=== PATIENT | female | born 1990 | race Caucasian/White ===

== ENCOUNTER 2018-11-08 15:25 | Outpatient (CLI) | payer BC ==
[~2018-11-08] VITALS: Ht 165.1 cm; Wt 90.9 kg
[~2018-11-08 15:25] MED LIST: LEVO75TA4 PO; TECF240C PO; ZOLO50TA PO
[2018-11-08 15:30] VITALS: BP 143/88
[2018-11-08] MEDS ORDERED: methylPREDNISolone 1000 MG VIAL (J2930) As Ordered ONE (15:46)
[2018-11-08] MEDS ORDERED: methylPREDNISolone 1,000 MG, VIAL MATE ADAPTER 1 EACH in D5W 250 ML IV ONE (16:00)
[2018-11-08] MEDS ORDERED: GILE1CAP PO (16:41)
[2018-11-08] MEDS ORDERED: LEVO88TA3 PO (16:41)
[2018-11-08 17:03] VITALS: BP 134/65
== END 2018-11-08 17:10 | disposition home or self-care (01) ==
LOC: M INFU 15:25
PROVIDERS: ATTEND Internal Medicine
DX: G35 Multiple sclerosis (principal)
CPT/HCPCS: 96365; J2930

== ENCOUNTER 2018-11-09 15:31 | Outpatient (CLI) | payer BC ==
[~2018-11-09] VITALS: Ht 165.1 cm; Wt 90.9 kg
[2018-11-09 13:35] VITALS: BP 141/70
[~2018-11-09 15:31] MED LIST changes: +GILE1CAP PO; +LEVO88TA3 PO
[2018-11-09] MEDS ORDERED: methylPREDNISolone 1000 MG VIAL (J2930) As Ordered ONE ×2 (15:55→15:58)
[2018-11-09] MEDS ORDERED: methylPREDNISolone 1,000 MG, VIAL MATE ADAPTER 1 EACH in D5W 250 ML IV ONE (16:00)
[2018-11-09 17:40] VITALS: BP 122/64
[2018-11-09 18:00] VITALS: BP 121/65
== END 2018-11-09 18:00 | disposition home or self-care (01) ==
LOC: M INFU 15:31
PROVIDERS: ATTEND Internal Medicine
DX: G35 Multiple sclerosis (principal)
CPT/HCPCS: 96365; J2930

== ENCOUNTER 2018-11-10 15:16 | Outpatient (CLI) | payer BC ==
[~2018-11-10] VITALS: Ht 165.1 cm; Wt 90.4 kg
[2018-11-10 15:30] VITALS: BP 132/71
[2018-11-10] MEDS ORDERED: methylPREDNISolone 1000 MG VIAL (J2930) As Ordered ONE (15:37)
[2018-11-10] MEDS ORDERED: methylPREDNISolone 1,000 MG, VIAL MATE ADAPTER 1 EACH in D5W 250 ML IV ONE (15:45)
[2018-11-10 17:15] VITALS: BP 113/53
== END 2018-11-10 17:30 | disposition home or self-care (01) ==
LOC: M INFU 15:16
PROVIDERS: ATTEND Internal Medicine
DX: G35 Multiple sclerosis (principal)
CPT/HCPCS: 96365; 96366; J2930

== ENCOUNTER 2018-11-11 11:58 | Outpatient (CLI) | payer BC ==
[~2018-11-11] VITALS: Ht 165.1 cm; Wt 90.9 kg
[2018-11-11 12:00] VITALS: BP 130/60
[2018-11-11] MEDS ORDERED: methylPREDNISolone 1,000 MG, VIAL MATE ADAPTER 1 EACH in D5W 250 ML IV ONE (12:15)
[2018-11-11 14:25] VITALS: BP 127/70
== END 2018-11-11 14:25 | disposition home or self-care (01) ==
LOC: M INFU 11:58
PROVIDERS: ATTEND Internal Medicine
DX: G35 Multiple sclerosis (principal)
CPT/HCPCS: 96365; 96366; J2930

== ENCOUNTER 2018-11-12 14:33 | Outpatient (CLI) | payer BC ==
[~2018-11-12] VITALS: Ht 162.6 cm; Wt 90.4 kg
[2018-11-12 14:40] VITALS: BP 115/75
[2018-11-12] MEDS ORDERED: methylPREDNISolone 1,000 MG, VIAL MATE ADAPTER 1 EACH in D5W 250 ML IV ONE (15:00)
[2018-11-12 16:00] VITALS: BP 121/64
[2018-11-12 17:07] VITALS: BP 123/60
== END 2018-11-12 17:10 | disposition home or self-care (01) ==
LOC: M INFU 14:33
PROVIDERS: ATTEND Internal Medicine
DX: G35 Multiple sclerosis (principal)
CPT/HCPCS: 96365; 96366; J2930

== ENCOUNTER → 2019-05-14 | Outpatient (CLI) | payer BC ==
--- NOTE | 2019-05-14 13:50 | REP ---
Pain after trauma. PRIORS: None. There is a fracture involving the base of the proximal phalanx of the 5th digit. Electronically Signed by Gunner Murcia DO 05/14/2019 03:18 P
== END ==
LOC: M LRY 12:34
PROVIDERS: ATTEND Nurse Practitioner Family
DX: S62.647A Nondisplaced fracture of proximal phalanx of left little finger, initial encounter for closed fracture (principal); X58.XXXA Exposure to other specified factors, initial encounter; Y92.89 Other specified places as the place of occurrence of the external cause

== ENCOUNTER → 2019-08-10 | Outpatient (REF) | payer BC | LOC: M SFHCLERA 11:27 | PROVIDERS: ATTEND Nurse Practitioner Family | DX: J00 Acute nasopharyngitis [common cold] (principal) ==

== ENCOUNTER → 2019-09-02 | Outpatient (CLI) | payer BC ==
[~2019-09-02] VITALS: Ht 162.6 cm; Wt 90.4 kg
[~2019-09-02] MED LIST changes: +NATALIZUMAB OVER 1 HOUR IV ONE; +TYSA1INJ IV
[2019-09-02 15:02] VITALS: BP 123/72
[2019-09-02 16:20] VITALS: BP 118/69
[2019-09-02 17:15] VITALS: BP 129/84
== END ==
LOC: M INFU 14:29
PROVIDERS: ATTEND Nurse Practitioner
DX: G35 Multiple sclerosis (principal)
CPT/HCPCS: 96365; J2323

== ENCOUNTER 2019-09-30 15:24 | Outpatient (CLI) | payer BC ==
[~2019-09-30] VITALS: Ht 162.6 cm; Wt 90.4 kg
[~2019-09-30 15:24] MED LIST changes: -NATALIZUMAB OVER 1 HOUR IV ONE
[2019-09-30 15:30] VITALS: BP 124/63
[2019-09-30] MEDS ORDERED: NATALIZUMAB OVER 1 HOUR IV ONE ×2 (15:45)
[2019-09-30 17:24] VITALS: BP 118/63
[2019-09-30 18:11] VITALS: BP 130/73
== END 2019-09-30 18:15 | disposition home or self-care (01) ==
LOC: M INFU 15:24
PROVIDERS: ATTEND Nurse Practitioner
DX: G35 Multiple sclerosis (principal)
CPT/HCPCS: 96365; J2323

== ENCOUNTER 2019-11-04 15:21 | Outpatient (CLI) | payer BC ==
[~2019-11-04] VITALS: Ht 10.2 cm; Wt 90.4 kg
[2019-11-04] MEDS ORDERED: NATALIZUMAB OVER 1 HOUR IV ONE ×2 (16:00)
[2019-11-04 16:01] VITALS: BP 123/71
[2019-11-04 17:00] VITALS: BP 128/74
[2019-11-04 18:00] VITALS: BP 121/68
== END 2019-11-04 18:04 | disposition home or self-care (01) ==
LOC: M INFU 15:21
PROVIDERS: ATTEND Nurse Practitioner
DX: G35 Multiple sclerosis (principal)
CPT/HCPCS: 96365; J2323

== ENCOUNTER 2019-12-22 08:06 | Outpatient (CLI) | payer BC ==
[~2019-12-22] VITALS: Ht 162.6 cm; Wt 90.4 kg
[2019-12-22] MEDS ORDERED: NATALIZUMAB OVER 1 HOUR IV ONE ×2 (08:30)
== END 2019-12-22 10:33 | disposition home or self-care (01) ==
LOC: M INFU 08:06
PROVIDERS: ATTEND Nurse Practitioner
DX: G35 Multiple sclerosis (principal)
CPT/HCPCS: 96365; J2323

== ENCOUNTER 2020-01-20 15:23 | Outpatient (CLI) | payer BC ==
[~2020-01-20] VITALS: Ht 162.6 cm; Wt 90.4 kg
[2020-01-20 15:25] VITALS: BP 134/88
[2020-01-20 16:00] VITALS: BP 117/70
[2020-01-20] MEDS ORDERED: NATALIZUMAB OVER 1 HOUR IV ONE ×2 (16:15)
[2020-01-20 16:25] VITALS: BP 129/76
[2020-01-20 17:05] VITALS: BP 117/70
[2020-01-20 18:12] VITALS: BP 129/74
== END 2020-01-20 18:10 | disposition home or self-care (01) ==
LOC: M INFU 15:23
PROVIDERS: ATTEND Nurse Practitioner
DX: G35 Multiple sclerosis (principal)
CPT/HCPCS: 96365; J2323

== ENCOUNTER 2020-02-17 15:29 | Outpatient (CLI) | payer BC ==
[~2020-02-17] VITALS: Ht 162.6 cm; Wt 90.4 kg
[2020-02-17 15:49] VITALS: BP 140/62
[2020-02-17] MEDS ORDERED: NATALIZUMAB OVER 1 HOUR IV ONE ×2 (16:00)
[2020-02-17 17:45] VITALS: BP 139/75
== END 2020-02-17 17:47 | disposition home or self-care (01) ==
LOC: M INFU 15:29
PROVIDERS: ATTEND Nurse Practitioner
DX: G35 Multiple sclerosis (principal)

== ENCOUNTER 2020-03-16 15:32 | Outpatient (CLI) | payer BC ==
[~2020-03-16] VITALS: Ht 162.6 cm; Wt 90.4 kg
[2020-03-16 15:45] VITALS: BP 123/75
[2020-03-16 16:00] VITALS: BP 123/75
[2020-03-16] MEDS ORDERED: NATALIZUMAB OVER 1 HOUR IV ONE ×2 (16:00)
[2020-03-16 17:07] VITALS: BP 132/68
[2020-03-16 18:11] VITALS: BP 120/68
== END 2020-03-16 18:15 ==
LOC: M INFU 15:32
PROVIDERS: ATTEND Nurse Practitioner
DX: G35 Multiple sclerosis (principal)
CPT/HCPCS: 96365; J2323

== ENCOUNTER 2020-04-13 15:30 | Outpatient (CLI) | payer BC ==
[2020-04-13] MEDS ORDERED: NATALIZUMAB ONE (15:31)
== END 2020-04-13 18:30 | disposition home or self-care (01) ==
LOC: M INFU 15:30
PROVIDERS: ATTEND Nurse Practitioner
DX: G35 Multiple sclerosis (principal)

== ENCOUNTER 2020-05-18 15:11 | Outpatient (CLI) | payer BC ==
[~2020-05-18] VITALS: Ht 162.6 cm; Wt 90.4 kg
[2020-05-18 15:20] VITALS: BP 138/85
[2020-05-18] MEDS ORDERED: NATALIZUMAB OVER 1 HOUR IV ONE ×2 (15:30)
[2020-05-18 15:39] VITALS: BP 138/85
[2020-05-18 17:15] VITALS: BP 141/81
[2020-05-18 18:25] VITALS: BP 139/82
== END 2020-05-18 18:25 | disposition home or self-care (01) ==
LOC: M INFU 15:11
PROVIDERS: ATTEND Nurse Practitioner
DX: G35 Multiple sclerosis (principal)
CPT/HCPCS: 96365; 96366; J2323

== ENCOUNTER 2020-06-15 15:14 | Outpatient (CLI) | payer BC ==
[~2020-06-15] VITALS: Ht 162.6 cm; Wt 89.8 kg
[~2020-06-15 15:14] MED LIST changes: +ALBUTEROL SULFATE 2.5 MG/0.5 ML INH NEB SOLN INH PRN; +EPINEPHrine INJ 1 MG/ML 1ML AMP IM PRN; +NS 1,000 ML IV SCH; +diphenhydrAMINE 50MG/ML VIAL (J1200) IV PRN; +methylPREDNISolone 125MG 2ML VIAL IV PRN
[2020-06-15 15:15] VITALS: BP 122/79
[2020-06-15] MEDS ORDERED: NATALIZUMAB OVER 1 HOUR IV ONE ×2 (15:30)
[2020-06-15 16:50] VITALS: BP 118/78
[2020-06-15 18:00] VITALS: BP 127/77
== END 2020-06-15 18:00 | disposition home or self-care (01) ==
LOC: M INFU 15:14
PROVIDERS: ATTEND Nurse Practitioner
DX: G35 Multiple sclerosis (principal)
CPT/HCPCS: 96365; J2323

== ENCOUNTER 2020-07-13 15:14 | Outpatient (CLI) | payer BC ==
[~2020-07-13] VITALS: Ht 162.6 cm; Wt 89.8 kg
[~2020-07-13 15:14] MED LIST changes: -NS 1,000 ML IV SCH
[2020-07-13 15:15] VITALS: BP 127/75
[2020-07-13] MEDS ORDERED: NS 1,000 ML IV SCH (15:30)
[2020-07-13] MEDS ORDERED: NATALIZUMAB OVER 1 HOUR IV ONE ×2 (15:30)
[2020-07-13 15:52] VITALS: BP 127/75
[2020-07-13 17:00] VITALS: BP 132/71
[2020-07-13 17:29] VITALS: BP 136/86
== END 2020-07-13 17:30 | disposition home or self-care (01) ==
LOC: M INFU 15:14
PROVIDERS: ATTEND Nurse Practitioner
DX: G35 Multiple sclerosis (principal); Z88.1 Allergy status to other antibiotic agents
CPT/HCPCS: 96365; 96366; J2323

== ENCOUNTER 2020-08-10 15:24 | Outpatient (CLI) | payer BC ==
[~2020-08-10] VITALS: Ht 162.6 cm; Wt 89.8 kg
[2020-08-10 15:30] VITALS: BP 141/85
[2020-08-10] MEDS ORDERED: NS 1,000 ML IV SCH (15:30)
[2020-08-10] MEDS ORDERED: NATALIZUMAB OVER 1 HOUR IV ONE ×2 (15:30)
[2020-08-10 17:10] VITALS: BP 122/61
[2020-08-10 18:05] VITALS: BP 141/73
== END 2020-08-10 18:05 | disposition home or self-care (01) ==
LOC: M INFU 15:24
PROVIDERS: ATTEND Nurse Practitioner
DX: G35 Multiple sclerosis (principal)
CPT/HCPCS: 96365; J2323

== ENCOUNTER 2020-09-25 12:27 | Outpatient (CLI) | payer BC ==
[~2020-09-25] VITALS: Ht 162.6 cm; Wt 89.8 kg
[~2020-09-25 12:27] MED LIST changes: +NATALIZUMAB OVER 1 HOUR IV ONE; +NS 1,000 ML IV SCH
[2020-09-25] MEDS ORDERED: NS 1,000 ML IV SCH (12:30)
[2020-09-25] MEDS ORDERED: EPINEPHrine INJ 1 MG/ML 1ML AMP IM PRN (12:30)
[2020-09-25] MEDS ORDERED: NATALIZUMAB OVER 1 HOUR IV ONE ×2 (12:30)
[2020-09-25] MEDS ORDERED: ALBUTEROL SULFATE 2.5 MG/0.5 ML INH NEB SOLN INH PRN (12:30)
[2020-09-25] MEDS ORDERED: diphenhydrAMINE 50MG/ML VIAL (J1200) IV PRN (12:30)
[2020-09-25] MEDS ORDERED: methylPREDNISolone 125MG 2ML VIAL IV PRN (12:30)
[2020-09-25 12:53] VITALS: BP 137/86
[2020-09-25 12:55] VITALS: BP 137/86
[2020-09-25 14:00] VITALS: BP 120/69
[2020-09-25 15:00] VITALS: BP 125/71
== END 2020-09-25 15:10 | disposition home or self-care (01) ==
LOC: M INFU 12:27
PROVIDERS: ATTEND Nurse Practitioner
DX: G35 Multiple sclerosis (principal)
CPT/HCPCS: 96365; J2323

== ENCOUNTER 2020-10-26 12:25 | Outpatient (CLI) | payer BC ==
[~2020-10-26] VITALS: Ht 163.8 cm; Wt 89.8 kg
[~2020-10-26 12:25] MED LIST changes: -NATALIZUMAB OVER 1 HOUR IV ONE; -NS 1,000 ML IV SCH
[2020-10-26] MEDS ORDERED: NS 1,000 ML IV SCH (12:30)
[2020-10-26] MEDS ORDERED: NATALIZUMAB OVER 1 HOUR IV ONE ×2 (12:30)
[2020-10-26 12:41] VITALS: BP 136/79
[2020-10-26 15:00] VITALS: BP 125/75
== END 2020-10-26 15:00 | disposition home or self-care (01) ==
LOC: M INFU 12:25
PROVIDERS: ATTEND Nurse Practitioner
DX: G35 Multiple sclerosis (principal)
CPT/HCPCS: 96365; J2323

== ENCOUNTER 2020-11-23 12:19 | Outpatient (CLI) | payer BC ==
[~2020-11-23] VITALS: Ht 162.6 cm; Wt 90.9 kg
[2020-11-23 12:30] VITALS: BP 138/87
[2020-11-23] MEDS ORDERED: NATALIZUMAB OVER 1 HOUR IV ONE ×2 (12:30)
[2020-11-23 13:56] VITALS: BP 121/70
[2020-11-23 14:50] VITALS: BP 132/92
== END 2020-11-23 14:50 | disposition home or self-care (01) ==
LOC: M INFU 12:19
PROVIDERS: ATTEND Nurse Practitioner
DX: G35 Multiple sclerosis (principal)
CPT/HCPCS: 96365; J2323

== ENCOUNTER → 2020-11-23 | Outpatient (CLI) | payer BC ==
[~2020-11-23] MED LIST changes: -ALBUTEROL SULFATE 2.5 MG/0.5 ML INH NEB SOLN INH PRN; -EPINEPHrine INJ 1 MG/ML 1ML AMP IM PRN; -diphenhydrAMINE 50MG/ML VIAL (J1200) IV PRN; -methylPREDNISolone 125MG 2ML VIAL IV PRN
[2020-11-23 16:04] LABS: FREE T4 0.87 NG/DL (0.76-1.46); THYROID STIMULATING HORMONE 1.71 uIU/ML (0.358-3.740)
== END ==
LOC: M LAB 15:05
PROVIDERS: ATTEND Nurse Practitioner Family
DX: E03.9 Hypothyroidism, unspecified (principal)

== ENCOUNTER 2020-12-21 12:18 | Outpatient (CLI) | payer BC ==
[~2020-12-21] VITALS: Ht 162.6 cm; Wt 90.9 kg
[2020-12-21] MEDS ORDERED: NATALIZUMAB OVER 1 HOUR IV ONE ×2 (12:30)
[2020-12-21 12:42] VITALS: BP 121/80
[2020-12-21 13:54] VITALS: BP 117/67
== END 2020-12-21 14:50 | disposition home or self-care (01) ==
LOC: M INFU 12:18
PROVIDERS: ATTEND Nurse Practitioner
DX: G35 Multiple sclerosis (principal)
CPT/HCPCS: 96365; J2323

== ENCOUNTER 2021-01-18 12:26 | Outpatient (CLI) | payer BC ==
[~2021-01-18] VITALS: Ht 162.6 cm; Wt 90.9 kg
[2021-01-18] MEDS ORDERED: NATALIZUMAB OVER 1 HOUR IV ONE ×2 (12:30)
[2021-01-18 13:00] VITALS: BP 122/68
[2021-01-18 14:15] VITALS: BP 131/62
== END 2021-01-18 14:15 | disposition home or self-care (01) ==
LOC: M INFU 12:26
PROVIDERS: ATTEND Nurse Practitioner
DX: G35 Multiple sclerosis (principal)
CPT/HCPCS: 96365; J2323

== ENCOUNTER 2021-02-15 12:39 | Outpatient (CLI) | payer BC ==
[~2021-02-15 12:39] MED LIST changes: +NATALIZUMAB OVER 1 HOUR IV ONE
[2021-02-15 12:45] VITALS: BP 142/84
== END 2021-02-15 14:10 | disposition home or self-care (01) ==
LOC: M INFU 12:39
PROVIDERS: ATTEND Nurse Practitioner
DX: G35 Multiple sclerosis (principal)
CPT/HCPCS: 96365; J2323

== ENCOUNTER 2021-03-15 12:55 | Outpatient (CLI) | payer BC, OTHER, SELFPAY ==
[~2021-03-15] VITALS: Ht 162.6 cm; Wt 90.9 kg
[2021-03-15 13:18] VITALS: BP 148/75
[2021-03-15 13:30] VITALS: BP_SYST 132; BP_SYST 148; BP_DIAS 75; BP_DIAS 78
[2021-03-15 14:55] VITALS: BP 135/85
== END 2021-03-15 14:55 | disposition home or self-care (01) ==
LOC: M INFU 12:55
PROVIDERS: ATTEND Nurse Practitioner
DX: G35 Multiple sclerosis (principal)
CPT/HCPCS: 96365; J2323

== ENCOUNTER 2021-04-12 12:33 | Outpatient (CLI) | payer OTHER ==
[~2021-04-12] VITALS: Ht 162.6 cm; Wt 90.9 kg
[2021-04-12 12:30] VITALS: BP 129/78
[2021-04-12 14:30] VITALS: BP 138/85
== END 2021-04-12 14:30 | disposition home or self-care (01) ==
LOC: M INFU 12:33
PROVIDERS: ATTEND Nurse Practitioner
DX: G35 Multiple sclerosis (principal)
CPT/HCPCS: 96365; J2323

== ENCOUNTER 2021-05-10 12:37 | Outpatient (CLI) | payer OTHER ==
[2021-05-10 12:45] VITALS: BP 144/78
[2021-05-10] MEDS ORDERED: MODA200T15 PO (13:25)
[2021-05-10] MEDS ORDERED: CLAR10CA3 PO (13:25)
[2021-05-10] MEDS ORDERED: VITACAP31 PO (13:27)
== END 2021-05-10 14:45 | disposition home or self-care (01) ==
LOC: M INFU 12:37
PROVIDERS: ATTEND Nurse Practitioner
DX: G35 Multiple sclerosis (principal)
CPT/HCPCS: 96374; J2323

== ENCOUNTER 2021-06-07 12:14 | Outpatient (CLI) | payer BC, OTHER ==
[~2021-06-07] VITALS: Ht 162.6 cm; Wt 93.2 kg
[~2021-06-07 12:14] MED LIST changes: +CLAR10CA3 PO; +MODA200T15 PO; -NATALIZUMAB OVER 1 HOUR IV ONE; +VITACAP31 PO
[2021-06-07 12:19] VITALS: BP 125/77
[2021-06-07] MEDS ORDERED: NATALIZUMAB OVER 1 HOUR IV ONE ×2 (12:30)
[2021-06-07] MEDS ORDERED: ABIL1TAB11 PO (12:31)
[2021-06-07 14:24] VITALS: BP 135/69
== END 2021-06-07 14:35 | disposition home or self-care (01) ==
LOC: M INFU 12:14
PROVIDERS: ATTEND Physician Assistant
DX: G35 Multiple sclerosis (principal)
CPT/HCPCS: 96365; J2323

== ENCOUNTER 2021-07-05 13:02 | Outpatient (CLI) | payer OTHER ==
[~2021-07-05] VITALS: Ht 162.6 cm; Wt 90.9 kg
[2021-07-05 13:00] VITALS: BP 125/83
[~2021-07-05 13:02] MED LIST changes: +ABIL1TAB11 PO; +NATALIZUMAB OVER 1 HOUR IV ONE
[2021-07-05] MEDS ORDERED: WELL100T2 PO (13:56)
[2021-07-05 15:15] VITALS: BP 136/84
== END 2021-07-05 15:15 | disposition home or self-care (01) ==
LOC: M INFU 13:02
PROVIDERS: ATTEND Physician Assistant
DX: G35 Multiple sclerosis (principal)
CPT/HCPCS: 96365; J2323

== ENCOUNTER 2021-08-16 12:38 | Outpatient (CLI) | payer BC, OTHER ==
[~2021-08-16] VITALS: Ht 162.6 cm; Wt 95.5 kg
[~2021-08-16 12:38] MED LIST changes: +WELL100T2 PO
[2021-08-16 12:42] VITALS: BP 130/77
[2021-08-16 13:27] VITALS: BP 130/77
[2021-08-16 14:20] VITALS: BP 128/83
== END 2021-08-16 14:30 | disposition home or self-care (01) ==
LOC: M INFU 12:38
PROVIDERS: ATTEND Physician Assistant
DX: G35 Multiple sclerosis (principal)
CPT/HCPCS: 96365; J2323

== ENCOUNTER 2021-09-27 12:23 | Outpatient (CLI) | payer OTHER ==
[~2021-09-27] VITALS: Ht 162.6 cm; Wt 95.5 kg
[~2021-09-27 12:23] MED LIST changes: -NATALIZUMAB OVER 1 HOUR IV ONE
[2021-09-27] MEDS ORDERED: NATALIZUMAB OVER 1 HOUR IV ONE ×2 (12:30)
[2021-09-27 12:45] VITALS: BP 128/85
[2021-09-27 14:43] VITALS: BP 116/66
== END 2021-09-27 14:45 | disposition home or self-care (01) ==
LOC: M INFU 12:23
PROVIDERS: ATTEND Physician Assistant
DX: G35 Multiple sclerosis (principal)
CPT/HCPCS: 96365; J2323

== ENCOUNTER 2021-11-08 12:26 | Outpatient (CLI) | payer OTHER ==
[~2021-11-08] VITALS: Ht 162.6 cm; Wt 95.5 kg
[2021-11-08] MEDS ORDERED: NATALIZUMAB OVER 1 HOUR IV ONE ×2 (12:30)
[2021-11-08 12:45] VITALS: BP 143/89
[2021-11-08 14:15] VITALS: BP 160/80
== END 2021-11-08 14:15 | disposition home or self-care (01) ==
LOC: M INFU 12:26
PROVIDERS: ATTEND Physician Assistant
DX: G35 Multiple sclerosis (principal)
CPT/HCPCS: 96365; J2323

== ENCOUNTER 2021-12-20 12:29 | Outpatient (CLI) | payer OTHER ==
[~2021-12-20] VITALS: Ht 162.6 cm; Wt 95.5 kg
[2021-12-20] MEDS ORDERED: NATALIZUMAB OVER 1 HOUR IV ONE ×2 (12:30)
[2021-12-20 12:57] VITALS: BP 124/83
[2021-12-20 14:10] VITALS: BP 130/71
== END 2021-12-20 14:10 | disposition home or self-care (01) ==
LOC: M INFU 12:29
PROVIDERS: ATTEND Physician Assistant
DX: G35 Multiple sclerosis (principal)
CPT/HCPCS: 96365; J2323

== ENCOUNTER → 2022-01-15 | Outpatient (CLI) | payer OTHER ==
[2022-01-15 11:10] LABS: BASO # 0.1 10^3/uL (0.0-0.2); BASO % 0.6 % (0.0-1.0); EOS # 0.1 10^3/uL (0.0-0.5); EOS % 1.3 % (0.0-3.0); LYMPH # 3.9 10^3/uL (1.5-5.0); MEAN CORPUSCULAR HEMOGLOBIN 29.2 pg (27.0-33.0); MEAN CORPUSCULAR HGB CONC 33.3 g/dl (32.0-36.5); MEAN CORPUSCULAR VOLUME 87.5 fl (80.0-96.0); MONO # 0.7 10^3/uL (0.0-0.8); MONO % 6.9 % (2.0-8.0); NEUTROPHILS # 5.2 10^3/uL (1.5-8.5); NEUTROPHILS % 51.5 % (36.0-66.0); PLATELET COUNT, AUTOMATED 169 10^3/uL (150-450); WHITE BLOOD COUNT 10.1 10^3/uL (4.0-10.0)
[2022-01-15 11:38] LABS: ALBUMIN 4.1 GM/DL (3.2-5.2); ALT/SGPT 32 U/L (12-78); BILIRUBIN,TOTAL 0.4 MG/DL (0.2-1.0); BLOOD UREA NITROGEN 12 MG/DL (7-18); CALCIUM LEVEL 9.5 MG/DL (8.5-10.1); CARBON DIOXIDE LEVEL 28 MEQ/L (21-32); CHLORIDE LEVEL 107 MEQ/L (98-107); CREATININE FOR GFR 0.81 MG/DL (0.55-1.30); GLOMERULAR FILTRATION RATE > 60.0 (>60); GLUCOSE, FASTING 96 MG/DL (70-100); POTASSIUM SERUM 4.2 MEQ/L (3.5-5.1); SODIUM LEVEL 140 MEQ/L (136-145); TOTAL PROTEIN 6.9 GM/DL (6.4-8.2)
[2022-01-15 11:45] LABS: TOTAL 25(OH) VITAMIN D 44.5 NG/ML (30.0-100.0)
== END ==
LOC: M LAB 10:16
PROVIDERS: ATTEND Physician Assistant
DX: G35 Multiple sclerosis (principal)

== ENCOUNTER 2022-01-31 12:43 | Outpatient (CLI) | payer OTHER ==
[~2022-01-31] VITALS: Ht 162.6 cm; Wt 95.5 kg
[~2022-01-31 12:43] MED LIST changes: +NATALIZUMAB OVER 1 HOUR IV ONE
[2022-01-31 12:50] VITALS: BP 134/79
[2022-01-31 14:29] VITALS: BP 148/82
== END 2022-01-31 14:30 | disposition home or self-care (01) ==
LOC: M INFU 12:43
PROVIDERS: ATTEND Physician Assistant
DX: G35 Multiple sclerosis (principal)
CPT/HCPCS: 96365; J2323

== ENCOUNTER 2022-03-14 12:30 | Outpatient (CLI) | payer OTHER ==
[~2022-03-14] VITALS: Ht 162.6 cm; Wt 95.5 kg
[2022-03-14 12:45] VITALS: BP 138/75
[2022-03-14 14:07] VITALS: BP 150/65
== END 2022-03-14 14:10 | disposition home or self-care (01) ==
LOC: M INFU 12:30
PROVIDERS: ATTEND Physician Assistant
DX: G35 Multiple sclerosis (principal)
CPT/HCPCS: 96365; J2323

== ENCOUNTER 2022-04-25 12:40 | Outpatient (CLI) | payer OTHER ==
[2022-04-25 12:46] VITALS: BP 138/81
[2022-04-25 14:16] VITALS: BP 138/90
== END 2022-04-25 14:10 | disposition home or self-care (01) ==
LOC: M INFU 12:40
PROVIDERS: ATTEND Physician Assistant
DX: G35 Multiple sclerosis (principal)
CPT/HCPCS: 96365; J2323

== ENCOUNTER 2022-06-06 12:30 | Outpatient (CLI) | payer OTHER ==
[2022-06-06 13:54] VITALS: BP 144/95
== END 2022-06-06 13:55 | disposition home or self-care (01) ==
LOC: M INFU 12:30
PROVIDERS: ATTEND Physician Assistant
DX: G35 Multiple sclerosis (principal)
CPT/HCPCS: 96365; J2323

== ENCOUNTER 2022-08-01 09:25 | Outpatient (CLI) | payer OTHER ==
[~2022-08-01] VITALS: Ht 165.1 cm; Wt 95.4 kg
[2022-08-01] MEDS ORDERED: NATALIZUMAB OVER 1 HOUR IV ONE ×2 (09:30)
[2022-08-01 09:42] VITALS: BP 135/78
[2022-08-01 10:55] VITALS: BP 134/73
== END 2022-08-01 10:55 | disposition home or self-care (01) ==
LOC: M INFU 09:25
PROVIDERS: ATTEND Nurse Practitioner Family
DX: G35 Multiple sclerosis (principal)
CPT/HCPCS: 96365; J2323

== ENCOUNTER 2022-09-12 12:30 | Outpatient (CLI) | payer OTHER ==
[~2022-09-12] VITALS: Ht 162.6 cm; Wt 95.5 kg
[2022-09-12 12:30] VITALS: BP 124/65
[2022-09-12 14:30] VITALS: BP 128/76
== END 2022-09-12 14:30 | disposition home or self-care (01) ==
LOC: M INFU 12:30
PROVIDERS: ATTEND Nurse Practitioner Family
DX: G35 Multiple sclerosis (principal)
CPT/HCPCS: 96365; J2323

== ENCOUNTER 2022-10-24 12:45 | Outpatient (CLI) | payer OTHER ==
[~2022-10-24] VITALS: Ht 162.6 cm; Wt 94.5 kg
[2022-10-24 12:45] VITALS: BP 126/67
[2022-10-24 14:45] VITALS: BP 140/82
== END 2022-10-24 14:45 | disposition home or self-care (01) ==
LOC: M INFU 12:45
PROVIDERS: ATTEND Nurse Practitioner Family
DX: G35 Multiple sclerosis (principal)
CPT/HCPCS: 96365; J2323

== ENCOUNTER 2022-12-05 12:38 | Outpatient (CLI) | payer OTHER ==
[2022-12-05 12:45] VITALS: BP 104/73
[2022-12-05 14:28] VITALS: BP 126/66
== END 2022-12-05 14:30 | disposition home or self-care (01) ==
LOC: M INFU 12:38
PROVIDERS: ATTEND Nurse Practitioner Family
DX: G35 Multiple sclerosis (principal)
CPT/HCPCS: 96365; J2323

== ENCOUNTER 2023-01-16 12:30 | Outpatient (CLI) | payer MEDICARE ==
[~2023-01-16] VITALS: Ht 162.6 cm; Wt 96.6 kg
[2023-01-16 12:30] VITALS: BP 148/64
[~2023-01-16 12:30] MED LIST changes: +ALBUTEROL SULFATE 2.5MG/0.5ML INH NEB SOLN INH PRN; +EPINEPHrine INJ 1 MG/ML 1ML AMP IM PRN; +NS 1,000 ML IV SCH; +diphenhydrAMINE 50MG/ML VIAL IV PRN; +methylPREDNISolone 125MG 2ML VIAL IV PRN
[2023-01-16 14:10] VITALS: BP 120/71
== END 2023-01-16 14:10 | disposition home or self-care (01) ==
LOC: M INFU 12:30
PROVIDERS: ATTEND Nurse Practitioner Family
DX: G35 Multiple sclerosis (principal); Z88.0 Allergy status to penicillin
CPT/HCPCS: 96365; J2323

== ENCOUNTER 2023-03-09 14:30 | Outpatient (CLI) | payer MEDICARE, OTHER ==
[~2023-03-09] VITALS: Ht 162.6 cm; Wt 96.1 kg
[2023-03-09 14:30] VITALS: BP 127/68; O2SAT 98
[2023-03-09 17:00] VITALS: BP 132/70; O2SAT 99
== END 2023-03-09 17:00 ==
LOC: M INFU 14:30
PROVIDERS: ATTEND Physician Assistant
DX: G35 Multiple sclerosis (principal); Z88.0 Allergy status to penicillin
CPT/HCPCS: 96365; J2323

== ENCOUNTER 2023-04-20 11:00 | Outpatient (CLI) | payer MEDICARE, OTHER ==
[~2023-04-20] VITALS: Ht 162.6 cm; Wt 95.5 kg
[2023-04-20 11:22] VITALS: BP 131/80; O2SAT 97
[2023-04-20 13:15] VITALS: BP 134/83; O2SAT 98
== END 2023-04-20 13:20 | disposition home or self-care (01) ==
LOC: M INFU 11:00
PROVIDERS: ATTEND Physician Assistant
DX: G35 Multiple sclerosis (principal); Z88.0 Allergy status to penicillin
CPT/HCPCS: 96365; J2323

== ENCOUNTER 2023-06-10 10:30 | Outpatient (CLI) | payer MEDICARE ==
[~2023-06-10] VITALS: Ht 165.1 cm; Wt 96.3 kg
[2023-06-10 10:53] VITALS: BP 134/84; TEMP 98.1; O2SAT 98
[2023-06-10 12:15] VITALS: BP 131/75; O2SAT 100
== END 2023-06-10 12:20 ==
LOC: M INFU 10:30
PROVIDERS: ATTEND Physician Assistant
DX: G35 Multiple sclerosis (principal); Z88.0 Allergy status to penicillin
CPT/HCPCS: 96365; J2323

== ENCOUNTER 2023-07-22 10:36 | Outpatient (CLI) | payer MEDICARE, OTHER ==
[~2023-07-22] VITALS: Ht 162.6 cm; Wt 99.0 kg
[2023-07-22 10:40] VITALS: BP 129/69; O2SAT 97
[2023-07-22 11:00] VITALS: BP 129/69; O2SAT 97
[2023-07-22 12:50] VITALS: BP 142/78; O2SAT 98
== END 2023-07-22 12:50 ==
LOC: M INFU 10:36
PROVIDERS: ATTEND Physician Assistant
DX: G35 Multiple sclerosis (principal); Z88.0 Allergy status to penicillin
CPT/HCPCS: 96365; J2323

== ENCOUNTER 2023-09-02 10:30 | Outpatient (CLI) | payer MEDICARE ==
[~2023-09-02] VITALS: Ht 162.6 cm; Wt 100.0 kg
[2023-09-02 10:50] VITALS: BP 137/86; O2SAT 96
[2023-09-02 12:30] VITALS: BP 132/90; O2SAT 96
== END 2023-09-02 12:30 | disposition home or self-care (01) ==
LOC: M INFU 10:30
PROVIDERS: ATTEND Physician Assistant
DX: G35 Multiple sclerosis (principal); Z88.1 Allergy status to other antibiotic agents
CPT/HCPCS: 96365; J2323

== ENCOUNTER 2023-10-14 10:35 | Outpatient (CLI) | payer MEDICARE, OTHER ==
[~2023-10-14 10:35] MED LIST changes: -NATALIZUMAB OVER 1 HOUR IV ONE
[2023-10-14 10:52] VITALS: BP 125/59; O2SAT 96
[2023-10-14] MEDS: NATALIZUMAB OVER 1 HOUR IV ONE (11:21)
[2023-10-14 12:31] VITALS: BP 120/73; O2SAT 96
== END 2023-10-14 12:30 ==
LOC: M INFU 10:35
PROVIDERS: ATTEND Physician Assistant
DX: G35 Multiple sclerosis (principal); Z88.0 Allergy status to penicillin
CPT/HCPCS: 96365; J2323

== ENCOUNTER 2023-11-25 10:30 | Outpatient (CLI) | payer MEDICARE, OTHER ==
[~2023-11-25] VITALS: Ht 162.6 cm; Wt 100.0 kg
[2023-11-25 11:04] VITALS: BP 143/75; O2SAT 95
[2023-11-25] MEDS: NATALIZUMAB OVER 1 HOUR IV ONE (11:10)
[2023-11-25 12:12] VITALS: BP 132/79; O2SAT 98
== END 2023-11-25 12:20 ==
LOC: M INFU 10:30
PROVIDERS: ATTEND Physician Assistant
DX: G35 Multiple sclerosis (principal); Z88.0 Allergy status to penicillin
CPT/HCPCS: 96365; J2323

== ENCOUNTER 2024-01-14 10:17 | Outpatient (CLI) | payer MEDICARE, OTHER ==
[~2024-01-14] VITALS: Ht 163.8 cm; Wt 100.0 kg
[~2024-01-14 10:17] MED LIST changes: +NATALIZUMAB OVER 1 HOUR IV ONE
[2024-01-14 10:20] VITALS: BP 133/84; O2SAT 96
[2024-01-14 10:25] VITALS: BP 143/88; O2SAT 98
[2024-01-14] MEDS: NATALIZUMAB OVER 1 HOUR IV ONE (10:45)
[2024-01-14 11:45] VITALS: BP 143/88; O2SAT 98
== END 2024-01-14 11:45 | disposition home or self-care (01) ==
LOC: M INFU 10:17
PROVIDERS: ATTEND Physician Assistant
DX: G35 Multiple sclerosis (principal); F34.1 Dysthymic disorder; F40.10 Social phobia, unspecified; F41.1 Generalized anxiety disorder; Z88.0 Allergy status to penicillin
CPT/HCPCS: 90834; 96365; J2323

== ENCOUNTER → 2024-02-09 | Outpatient (CLI) | payer MEDICARE, MEDICAID ==
[~2024-02-09] MED LIST changes: -ALBUTEROL SULFATE 2.5MG/0.5ML INH NEB SOLN INH PRN; -EPINEPHrine INJ 1 MG/ML 1ML AMP IM PRN; -NATALIZUMAB OVER 1 HOUR IV ONE; -NS 1,000 ML IV SCH; -diphenhydrAMINE 50MG/ML VIAL IV PRN; -methylPREDNISolone 125MG 2ML VIAL IV PRN
[2024-02-09 10:42] LABS: BASO # 0.1 10^3/uL (0.0-0.2); BASO % 0.9 % (0.0-1.0); EOS # 0.2 10^3/uL (0.0-0.5); EOS % 1.5 % (0.0-3.0); HEMATOCRIT 45.5 % (36.0-47.0); HEMOGLOBIN 15.1 g/dl (12.0-15.5); LYMPH # 4.8 10^3/uL (1.5-5.0); LYMPH % 44.1 % (24.0-44.0); MEAN CORPUSCULAR HEMOGLOBIN 28.5 pg (27.0-33.0); MEAN CORPUSCULAR HGB CONC 33.2 g/dl (32.0-36.5); MONO # 0.8 10^3/uL (0.0-0.8); NEUTROPHILS % 45.9 % (36.0-66.0); PLATELET COUNT, AUTOMATED 165 10^3/uL (150-450); RED BLOOD COUNT 5.29 10^6/uL (4.00-5.40); WHITE BLOOD COUNT 10.8 10^3/uL (4.0-10.0)
[2024-02-09 11:14] LABS: THYROID STIMULATING HORMONE 12.676 uIU/ML (0.55-4.78); TOTAL 25(OH) VITAMIN D 38.2 NG/ML (20.0-100.0)
[2024-02-09 11:17] LABS: ALBUMIN 4.3 G/DL (3.2-5.2); ALKALINE PHOSPHATASE 57 U/L (46-116); ALT/SGPT 36 U/L (7.0-40); AST/SGOT 13 U/L (<34); BILIRUBIN,TOTAL 0.5 MG/DL (0.3-1.2); BLOOD UREA NITROGEN 12 MG/DL (9-23); CALCIUM LEVEL 10.3 MG/DL (8.5-10.1); CARBON DIOXIDE LEVEL 27 MMOL/L (20-31); CHLORIDE LEVEL 108 MMOL/L (98-107); CHOLESTEROL LEVEL 236 MG/DL (<200); CHOLESTEROL RISK RATIO 5.38 (<5); GLOMERULAR FILTRATION RATE > 60.0 (>60); GLUCOSE, FASTING 91 MG/DL (60-100); HDL CHOLESTEROL 43.8 MG/DL (>40); LDL CHOLESTEROL 124.6 MG/DL (<100); NON-HDL-C 192.2 MG/DL; POTASSIUM SERUM 5.4 MMOL/L (3.5-5.1); SODIUM LEVEL 142 MMOL/L (136-145); TOTAL PROTEIN 7.2 G/DL (5.7-8.2); TRIGLYCERIDES LEVEL 338 MG/DL (<150)
[2024-02-09 11:18] LABS: VITAMIN B12 LEVEL 316 PG/ML (211-911)
== END ==
LOC: M LAB 09:11
PROVIDERS: ATTEND Physician Assistant
DX: Z00.00 Encounter for general adult medical examination without abnormal findings (principal); R53.83 Other fatigue; G35 Multiple sclerosis; E03.9 Hypothyroidism, unspecified; F32.A Depression, unspecified; F41.9 Anxiety disorder, unspecified; Z79.899 Other long term (current) drug therapy

== ENCOUNTER → 2024-02-10 | Outpatient (REF) | payer MEDICARE, MEDICAID | LOC: M SFHCLERA 16:41 | PROVIDERS: ATTEND Physician Assistant | DX: Z01.419 Encounter for gynecological examination (general) (routine) without abnormal findings (principal) | CPT/HCPCS: 87070; G0123 ==

== ENCOUNTER 2024-02-26 11:57 | Outpatient (CLI) | payer MEDICARE, MEDICAID ==
[~2024-02-26] VITALS: Ht 162.6 cm; Wt 99.0 kg
[~2024-02-26 11:57] MED LIST changes: +ALBUTEROL SULFATE 2.5MG/0.5ML INH NEB SOLN INH PRN; +EPINEPHrine INJ 1 MG/ML 1ML AMP IM PRN; +NS 1,000 ML IV SCH; +diphenhydrAMINE 50MG/ML VIAL IV PRN; +methylPREDNISolone 125MG 2ML VIAL IV PRN
[2024-02-26 12:00] VITALS: BP 132/84; O2SAT 94
[2024-02-26] MEDS: NATALIZUMAB OVER 1 HOUR IV ONE (12:41)
[2024-02-26 13:45] VITALS: BP 143/80; O2SAT 100
[2024-02-26 13:47] VITALS: BP 136/88; O2SAT 96
== END 2024-02-26 13:50 ==
LOC: M INFU 11:57
PROVIDERS: ATTEND Physician Assistant
DX: G35 Multiple sclerosis (principal); Z88.0 Allergy status to penicillin
CPT/HCPCS: 96365; J2323

== ENCOUNTER → 2024-03-19 | Outpatient (CLI) | payer MEDICARE, MEDICAID ==
[~2024-03-19] MED LIST changes: -ALBUTEROL SULFATE 2.5MG/0.5ML INH NEB SOLN INH PRN; -EPINEPHrine INJ 1 MG/ML 1ML AMP IM PRN; -NS 1,000 ML IV SCH; -diphenhydrAMINE 50MG/ML VIAL IV PRN; -methylPREDNISolone 125MG 2ML VIAL IV PRN
[2024-03-19 09:42] LABS: ALBUMIN 4.3 G/DL (3.2-5.2); ALKALINE PHOSPHATASE 54 U/L (46-116); ALT/SGPT 30 U/L (7.0-40); AST/SGOT 10 U/L (<34); BILIRUBIN,TOTAL 0.5 MG/DL (0.3-1.2); BLOOD UREA NITROGEN 12 MG/DL (9-23); CALCIUM LEVEL 9.8 MG/DL (8.5-10.1); CARBON DIOXIDE LEVEL 27 MMOL/L (20-31); CHLORIDE LEVEL 110 MMOL/L (98-107); CREATININE FOR GFR 0.86 MG/DL (0.55-1.30); FREE T4 0.85 NG/DL (0.89-1.76); GLOMERULAR FILTRATION RATE > 60.0 (>60); GLUCOSE, FASTING 93 MG/DL (60-100); POTASSIUM SERUM 4.9 MMOL/L (3.5-5.1); SODIUM LEVEL 142 MMOL/L (136-145); THYROID STIMULATING HORMONE 10.051 uIU/ML (0.55-4.78); TOTAL PROTEIN 6.9 G/DL (5.7-8.2)
== END ==
LOC: M LAB 08:43
PROVIDERS: ATTEND Physician Assistant
DX: E03.9 Hypothyroidism, unspecified (principal)

== ENCOUNTER 2024-04-08 10:40 | Outpatient (CLI) | payer MEDICARE, OTHER ==
[~2024-04-08] VITALS: Ht 162.6 cm; Wt 98.0 kg
[~2024-04-08 10:40] MED LIST changes: +ALBUTEROL SULFATE 2.5MG/0.5ML INH NEB SOLN INH PRN; +EPINEPHrine INJ 1 MG/ML 1ML AMP IM PRN; +NS 1,000 ML IV SCH; +diphenhydrAMINE 50MG/ML VIAL IV PRN; +methylPREDNISolone 125MG 2ML VIAL IV PRN
[2024-04-08 10:50] VITALS: BP 131/78; O2SAT 96
[2024-04-08] MEDS: NATALIZUMAB OVER 1 HOUR IV ONE (11:05)
[2024-04-08 12:10] VITALS: BP 136/74; O2SAT 95
== END 2024-04-08 12:10 ==
LOC: M INFU 10:40
PROVIDERS: ATTEND Physician Assistant
DX: G35 Multiple sclerosis (principal); Z88.0 Allergy status to penicillin
CPT/HCPCS: 96365; J2323

== ENCOUNTER 2024-05-20 10:40 | Outpatient (CLI) | payer MEDICARE, MEDICAID ==
[~2024-05-20] VITALS: Ht 162.6 cm; Wt 100.0 kg
[2024-05-20 10:40] VITALS: BP 136/75; O2SAT 98
[2024-05-20] MEDS: NATALIZUMAB OVER 1 HOUR IV ONE (11:28)
[2024-05-20 12:40] VITALS: BP 136/76; O2SAT 99
== END 2024-05-20 12:40 ==
LOC: M INFU 10:40
PROVIDERS: ATTEND Physician Assistant
DX: G35 Multiple sclerosis (principal); Z88.0 Allergy status to penicillin
CPT/HCPCS: 96365; J2323

== ENCOUNTER 2024-07-01 09:45 | Outpatient (CLI) | payer MEDICARE, MEDICAID ==
[~2024-07-01] VITALS: Ht 162.6 cm; Wt 97.7 kg
[~2024-07-01 09:45] MED LIST changes: -NS 1,000 ML IV SCH
[2024-07-01 10:40] VITALS: BP 144/77; O2SAT 100
[2024-07-01] MEDS: NATALIZUMAB OVER 1 HOUR IV ONE (11:27)
[2024-07-01 12:35] VITALS: BP 137/76; O2SAT 98
== END 2024-07-01 12:35 ==
LOC: M INFU 09:45
PROVIDERS: ATTEND Physician Assistant
DX: G35 Multiple sclerosis (principal); Z88.1 Allergy status to other antibiotic agents
CPT/HCPCS: 96365; J2323

== ENCOUNTER → 2024-07-18 | Outpatient (REF) | payer MEDICARE, MEDICAID ==
[~2024-07-18] MED LIST changes: -ALBUTEROL SULFATE 2.5MG/0.5ML INH NEB SOLN INH PRN; -EPINEPHrine INJ 1 MG/ML 1ML AMP IM PRN; -diphenhydrAMINE 50MG/ML VIAL IV PRN; -methylPREDNISolone 125MG 2ML VIAL IV PRN
== END ==
LOC: M SFHCDERM 08:03
PROVIDERS: ATTEND Nurse Practitioner Family
DX: D22.5 Melanocytic nevi of trunk (principal)

== ENCOUNTER 2024-08-12 10:35 | Outpatient (CLI) | payer MEDICARE, MEDICAID ==
[~2024-08-12] VITALS: Ht 162.6 cm; Wt 100.0 kg
[~2024-08-12 10:35] MED LIST changes: +ALBUTEROL SULFATE 2.5MG/0.5ML INH NEB SOLN INH PRN; +EPINEPHrine INJ 1 MG/ML 1ML AMP IM PRN; +NS (Normal Saline) 0.9% 1,000 ML IV SCH; +diphenhydrAMINE 50MG/ML VIAL IV PRN; +methylPREDNISolone 125MG 2ML VIAL IV PRN
[2024-08-12 10:40] VITALS: BP 123/64; O2SAT 93
[2024-08-12] MEDS: NATALIZUMAB OVER 1 HOUR IV ONE (11:20)
[2024-08-12 12:29] VITALS: BP 131/76; O2SAT 97
== END 2024-08-12 12:30 ==
LOC: M INFU 10:35
PROVIDERS: ATTEND Physician Assistant
DX: G35 Multiple sclerosis (principal)
CPT/HCPCS: 96365; J2323

== ENCOUNTER → 2024-09-23 | Outpatient (CLI) | payer MEDICARE, MEDICAID ==
[~2024-09-23] VITALS: Ht 162.6 cm; Wt 100.0 kg
[~2024-09-23] MED LIST changes: -NS (Normal Saline) 0.9% 1,000 ML IV SCH
[2024-09-23 10:35] VITALS: BP 103/74; O2SAT 98
[2024-09-23] MEDS: NATALIZUMAB OVER 1 HOUR IV ONE (11:49)
[2024-09-23 12:55] VITALS: BP 122/77; O2SAT 97
== END ==
LOC: M INFU 10:23
PROVIDERS: ATTEND Physician Assistant
DX: G35 Multiple sclerosis (principal); Z88.0 Allergy status to penicillin
CPT/HCPCS: 96365; J2323

== ENCOUNTER 2024-11-04 11:43 | Outpatient (CLI) | payer MEDICARE, MEDICAID ==
[~2024-11-04] VITALS: Ht 162.6 cm; Wt 100.0 kg
[~2024-11-04 11:43] MED LIST changes: +NS (Normal Saline) 0.9% 1,000 ML IV SCH
[2024-11-04 11:45] VITALS: BP 122/85; O2SAT 100
[2024-11-04] MEDS: NATALIZUMAB OVER 1 HOUR IV ONE (12:14)
[2024-11-04 13:25] VITALS: BP 131/79; O2SAT 97
== END 2024-11-04 13:25 ==
LOC: M INFU 11:43
PROVIDERS: ATTEND Physician Assistant
DX: G35 Multiple sclerosis (principal); Z88.0 Allergy status to penicillin
CPT/HCPCS: 96365; J2323

== ENCOUNTER 2024-12-16 13:02 | Outpatient (CLI) | payer MEDICARE, MEDICAID ==
[~2024-12-16] VITALS: Ht 162.6 cm; Wt 100.5 kg
[~2024-12-16 13:02] MED LIST changes: +ALBUTEROL SULFATE 2.5MG/0.5ML INH CONCENTRATE NEB SOLN INH PRN; -ALBUTEROL SULFATE 2.5MG/0.5ML INH NEB SOLN INH PRN
[2024-12-16 13:05] VITALS: BP 135/79; O2SAT 95
[2024-12-16] MEDS: NATALIZUMAB OVER 1 HOUR IV ONE (13:44)
[2024-12-16 14:50] VITALS: BP 145/79; O2SAT 96
== END 2024-12-16 14:50 | disposition home or self-care (01) ==
LOC: M INFU 13:02
PROVIDERS: ATTEND Physician Assistant
DX: G35 Multiple sclerosis (principal); Z88.0 Allergy status to penicillin
CPT/HCPCS: 96365; J2323

== ENCOUNTER → 2025-02-23 | Outpatient (CLI) | payer MEDICARE, MEDICAID ==
[~2025-02-23] MED LIST changes: -ALBUTEROL SULFATE 2.5MG/0.5ML INH CONCENTRATE NEB SOLN INH PRN; -EPINEPHrine INJ 1 MG/ML 1ML AMP IM PRN; -NS (Normal Saline) 0.9% 1,000 ML IV SCH; -diphenhydrAMINE 50MG/ML VIAL IV PRN; -methylPREDNISolone 125MG 2ML VIAL IV PRN
[2025-02-23 12:48] LABS: HEMOGLOBIN A1c 5.3 % (4.0-6.0)
[2025-02-23 12:53] LABS: URIC ACID 6.5 MG/DL (3.1-7.8)
[2025-02-23 12:56] LABS: C REACTIVE PROTEIN QUANTITATIV < 0.50 MG/DL (<1.0); CHOLESTEROL LEVEL 216 MG/DL (<200); CHOLESTEROL RISK RATIO 4.81 (<5); HDL CHOLESTEROL 44.9 MG/DL (>40); LDL CHOLESTEROL 129.1 MG/DL (<100); NON-HDL-C 171.1 MG/DL; RHEUMATOID FACTOR QUANT < 3.5 IU/ML (<14); TRIGLYCERIDES LEVEL 210 MG/DL (<150)
[2025-02-27 15:48] LABS: ANA SCREEN, IFA NEGATIVE (NEGATIVE)
[2025-03-01 17:23] LABS: HLA-B27 Negative (Negative)
== END ==
LOC: M LAB 11:32
DX: R53.82 Chronic fatigue, unspecified (principal); E03.9 Hypothyroidism, unspecified; Z79.899 Other long term (current) drug therapy

== ENCOUNTER 2025-03-17 08:04 | Outpatient (CLI) | payer MEDICARE, MEDICAID ==
[~2025-03-17] VITALS: Ht 162.6 cm; Wt 100.0 kg
[~2025-03-17 08:04] MED LIST changes: +ALBUTEROL SULFATE 2.5 MG/0.5 ML INH CONCENTRATE NEB SOLN INH PRN; +EPINEPHrine INJ 1 MG/ML 1ML AMP IM PRN; +NS (Normal Saline) 0.9% 1,000 ML IV SCH; +diphenhydrAMINE 50 MG/ML VIAL IV PRN
[2025-03-17 08:10] VITALS: BP 121/83; O2SAT 98
[2025-03-17] MEDS: NATALIZUMAB OVER 1 HOUR IV ONE (08:30)
[2025-03-17 09:40] VITALS: BP 140/68; O2SAT 99
== END 2025-03-17 09:40 ==
LOC: M INFU 08:04
PROVIDERS: ATTEND Physician Assistant
DX: G35 Multiple sclerosis (principal); Z88.0 Allergy status to penicillin
CPT/HCPCS: 96365; J2323

== ENCOUNTER → 2025-04-14 | Outpatient (CLI) | payer MEDICARE, MEDICAID ==
[~2025-04-14] MED LIST changes: -ALBUTEROL SULFATE 2.5 MG/0.5 ML INH CONCENTRATE NEB SOLN INH PRN; -EPINEPHrine INJ 1 MG/ML 1ML AMP IM PRN; -NS (Normal Saline) 0.9% 1,000 ML IV SCH; -diphenhydrAMINE 50 MG/ML VIAL IV PRN
[2025-04-14 14:20] LABS: FREE T4 1.13 NG/DL (0.89-1.76)
== END ==
LOC: M PLALAB 11:42
DX: E03.9 Hypothyroidism, unspecified (principal)

== ENCOUNTER 2025-05-05 16:10 | Outpatient (CLI) | payer MEDICARE, MEDICAID ==
[~2025-05-05] VITALS: Ht 162.6 cm; Wt 100.0 kg
[2025-05-05 16:10] VITALS: BP 119/72; O2SAT 96
[~2025-05-05 16:10] MED LIST changes: +ALBUTEROL SULFATE 2.5 MG/0.5 ML INH CONCENTRATE NEB SOLN INH PRN; +EPINEPHrine INJ 1 MG/ML 1ML AMP IM PRN; +NS (Normal Saline) 0.9% 1,000 ML IV SCH; +diphenhydrAMINE 50 MG/ML VIAL IV PRN
[2025-05-05] MEDS: NATALIZUMAB OVER 1 HOUR IV ONE (16:55)
[2025-05-05 17:55] VITALS: BP 117/70; O2SAT 99
== END 2025-05-05 17:15 | disposition home or self-care (01) ==
LOC: M INFU 16:10
PROVIDERS: ATTEND Physician Assistant
DX: G35 Multiple sclerosis (principal); Z88.0 Allergy status to penicillin
CPT/HCPCS: 96365; J2323

== ENCOUNTER → 2025-05-08 | Outpatient (CLI) | payer MEDICARE, MEDICAID ==
[~2025-05-08] MED LIST changes: -ALBUTEROL SULFATE 2.5 MG/0.5 ML INH CONCENTRATE NEB SOLN INH PRN; -EPINEPHrine INJ 1 MG/ML 1ML AMP IM PRN; -NS (Normal Saline) 0.9% 1,000 ML IV SCH; -diphenhydrAMINE 50 MG/ML VIAL IV PRN
== END ==
LOC: M RAD 10:06
PROVIDERS: ATTEND Nurse Practitioner Family
DX: E06.3 Autoimmune thyroiditis (principal)

== ENCOUNTER → 2025-05-29 | Outpatient (CLI) | payer MEDICARE, MEDICAID | LOC: M SLEEP HO 11:10 | PROVIDERS: ATTEND Physician Assistant | DX: R40.0 Somnolence (principal); R06.83 Snoring ==

== ENCOUNTER → 2025-06-22 | Outpatient (CLI) | payer MEDICARE, MEDICAID ==
[2025-06-22 15:07] LABS: FREE T4 1.29 NG/DL (0.89-1.76)
== END ==
LOC: M PLALAB 11:16
PROVIDERS: ATTEND Nurse Practitioner Family
DX: E06.3 Autoimmune thyroiditis (principal)

== ENCOUNTER 2025-07-21 10:32 | Outpatient (CLI) | payer MEDICARE, MEDICAID ==
[~2025-07-21] VITALS: Ht 162.6 cm; Wt 102.3 kg
[2025-07-21] VITALS (7 sets, daily range): BP systolic 114–147; BP diastolic 73–88; O2SAT 96–99
[~2025-07-21 10:32] MED LIST changes: +ALBUTEROL SULFATE 2.5 MG/0.5 ML INH CONCENTRATE NEB SOLN INH PRN; +EPINEPHrine INJ 1 MG/ML 1ML AMP IM PRN; +diphenhydrAMINE 50 MG/ML VIAL IV PRN
[2025-07-21] MEDS: ACETAMINOPHEN 650 MG PO ONE (10:53)
[2025-07-21] MEDS: OCRELIZUMAB 300 MG in NS 250 ML IV ONE (11:37)
== END 2025-07-21 15:10 | disposition home or self-care (01) ==
LOC: M INFU 10:32
PROVIDERS: ATTEND Physician Assistant
DX: G35.D Multiple sclerosis, unspecified (principal); Z88.0 Allergy status to penicillin
CPT/HCPCS: 96365; 96366; 96375; J2350; J2919

== ENCOUNTER 2025-08-07 10:43 | Outpatient (CLI) | payer MEDICARE, MEDICAID ==
[~2025-08-07] VITALS: Ht 162.6 cm; Wt 100.0 kg
[2025-08-07 10:50] VITALS: BP 120/83; O2SAT 97
[2025-08-07] MEDS: ACETAMINOPHEN 650 MG PO ONE (10:58)
[2025-08-07] MEDS: diphenhydrAMINE 50 MG/ML VIAL IV ONE (10:58)
[2025-08-07] MEDS: OCRELIZUMAB 300 MG in NS 250 ML IV ONE (11:50)
[2025-08-07 12:15] VITALS: BP 123/70; O2SAT 99
[2025-08-07 12:45] VITALS: BP 122/79; O2SAT 98
[2025-08-07 13:45] VITALS: BP 126/81; O2SAT 98
[2025-08-07 14:15] VITALS: BP 130/79; O2SAT 99
[2025-08-07 14:35] VITALS: BP 116/70; O2SAT 99
== END 2025-08-07 14:44 | disposition home or self-care (01) ==
LOC: M INFU 10:43
PROVIDERS: ATTEND Physician Assistant
DX: G35.D Multiple sclerosis, unspecified (principal); Z88.0 Allergy status to penicillin
CPT/HCPCS: 96365; 96366; J1200; J2350; J2919